=== PATIENT | male | born 1980 | race African-American/Black ===

== ENCOUNTER → 2017-12-02 | Day surgery (SDC) | payer OTHER ==
[2017-12-01 16:49] LABS: BASOPHILS % 0.7 % (0.0-1.0); EOSINOPHILS # (AUTO) 0.1 (0.0-0.4); EOSINOPHILS % 1.7 % (0.0-6.0); HEMATOCRIT 38.3 % (38.2-49.6); HEMOGLOBIN 12.7 g/dL (14.0-18.0); LYMPHOCYTES # (AUTO) 1.3 (1.0-3.2); LYMPHOCYTES % 29.3 % (18.0-39.1); MEAN CORPUSCULAR HEMOGLOBIN 29.3 pg (28-32); MEAN CORPUSCULAR HGB CONC 33.2 g/dL (31-35); MEAN CORPUSCULAR VOLUME 88.2 fL (81-99); MONOCYTES # (AUTO) 0.4 (0.2-0.8); MONOCYTES % 7.6 % (4.4-11.3); NEUTROPHILS # (AUTO) 2.8 (2.1-6.9); NEUTROPHILS % 60.5 % (38.7-80.0); PLATELET COUNT 253 x10e3/uL (140-360); RED BLOOD COUNT 4.34 x10e6/uL (4.3-5.7); RED CELL DISTRIBUTION WIDTH 12.6 % (11.7-14.4)
[2017-12-01 17:04] LABS: ANION GAP 12.3 mmol/L (8-16); BLOOD UREA NITROGEN 9 mg/dL (7-26); BUN/CREATININE RATIO 7 (6-25); CALCIUM 9.2 mg/dL (8.4-10.2); CARBON DIOXIDE 28 mmol/L (22-29); CHLORIDE 104 mmol/L (98-107); CREATININE, SERUM 1.37 mg/dL (0.72-1.25); EST GLOMERULAR FILTRATION RATE > 60 ML/MIN (60-); GLUCOSE 96 mg/dL (74-118); POTASSIUM 4.3 mmol/L (3.5-5.1); SODIUM 140 mmol/L (136-145)
[~2017-12-02] MED LIST: ACETAMINOPHEN 1000 MG/100 ML IV ONE; BUPIVACAINE 0.25%/EPI 30ML SDV INJ ONE; CEFAZOLIN SOD 1 GM VIAL ONE; DEXAMETHASONE SOD PHOS INJ 4 MG/ML VIAL ONE; FENTANYL CITRATE/PF 100MCG/2 ML INJ ONE; KETOROLAC TROMETHAMINE 30 MG/ML VIAL ONE; LIDOCAINE HCL 2% LOCAL INJ 5 ML SDV VIAL INJ ONE; MIDAZOLAM HCL 2 MG/2 ML VIAL ONE; MORPHINE SULFATE INJ 10 MG/ML ONE; ONDANSETRON HCL INJ 2 MG/ML VIAL ONE; PROPOFOL IV EMULSION 10 MG/ML 20 ML VIAL ONE; SEVOFLURANE INHAL SOLN 250 ML PEN BTL ONE
--- NOTE | 2017-12-02 12:36 | Operative Report ---
DATE OF PROCEDURE: December 02, 2017 PREOPERATIVE DIAGNOSIS: Right inguinal hernia. POSTOPERATIVE DIAGNOSIS: Right inguinal hernia. PROCEDURE PERFORMED: Repair of right inguinal hernia with the Ultrapro Hernia System, large size. ANESTHESIA: General. ESTIMATED BLOOD LOSS: Minimal. DRAINS: None. COMPLICATIONS: None. INDICATIONS AND FINDINGS: The patient is a 37-year-old male admitted for repair of symptomatic right inguinal hernia. He had developed pain and bulge in the right groin after lifting at work. INTRAOPERATIVE FINDINGS: The patient had an indirect hernia sac that was empty and a lipoma of the cord. The Ultrapro Hernia System, large size, was placed. DESCRIPTION OF PROCEDURE: With the patient lying on the operative table in the supine position, after administration of general anesthesia, he was prepped and draped for repair of a right inguinal hernia. Preemptive anesthesia was given with 0.25% Marcaine with epinephrine as an incisional block and ilioinguinal nerve block. A transverse incision was made in the right groin and deepened through skin, subcutaneous tissue, and Scott fascia until the external oblique aponeurosis was identified. This was incised along the course of its fibers, transecting the external inguinal ring also. Medial and lateral leaves were developed of the external oblique aponeurosis and then the cord identified, mobilized and elevated from the cord and then explored. The cremaster veil was incised. An indirect hernia sac was found. It was empty. It was highly ligated with 2-0 silk and then tied off with the same suture material. A lipoma of the cord was then clamped and transected and then tied off with 2-0 Vicryl. At this point, we incised the transversalis fascia. The inferior epigastric vessels were very close to the cord, and we had to transect them in order to get access to the preperitoneal space. They were ligated with 2-0 silk. After we did that, we developed the preperitoneal space using blunt dissection to accommodate the mesh. Then we went ahead and deployed the Ultrapro Hernia System, large size, with the underlay part of the mesh over the direct space and the overlay part of the mesh over the inguinal canal floor. A slit was made to accommodate the cord, and then the mesh was secured to the local tissues with a series of interrupted 2-0 Ethibond sutures. The wound was irrigated and bleeding points cauterized, then closed in layers using 2-0 Vicryl for the external oblique aponeurosis, 2-0 plain chromic catgut for the soft tissues, and the skin was closed using wyatt. Sterile dressing was applied. The patient tolerated the procedure well and was taken to recovery room in stable condition. Job#: [id number] JAM
== END | disposition home or self-care (01) ==
LOC: OR 06:21
PROVIDERS: ATTEND Surgery
DX: K40.90 Unilateral inguinal hernia, without obstruction or gangrene, not specified as recurrent (principal); D17.6 Benign lipomatous neoplasm of spermatic cord; K21.9 Gastro-esophageal reflux disease without esophagitis; F41.9 Anxiety disorder, unspecified; Z01.812 Encounter for preprocedural laboratory examination; Z87.891 Personal history of nicotine dependence; Z80.1 Family history of malignant neoplasm of trachea, bronchus and lung
CPT/HCPCS: 36415; 49505; 80048; 85025; C1781; J0690; J1100; J1885; J2001; J2250; J2270; J2405